=== PATIENT | male | born 1990 | race African-American/Black ===

== ENCOUNTER 2017-10-17 05:44 | Emergency (ER) | payer OTHER ==
[2017-10-17 06:17] LABS: #Basophils 0.1 thou/uL (0.0-0.2); #Lymphocytes 2.2 thou/uL (1.20-3.40); #Neutrophils 11.4 thou/uL (1.40-6.50); %Basophils 0.5 % (0.0-1.0); %Eosinophils 0.3 % (0.0-10.0); %Lymphocytes 15.1 % (21.0-51.0); %Monocytes 6.7 % (0.0-10.0); Hematocrit 48.9 % (42.0-52.0); Mean Platelet Volume 8.3 fL (7.4-10.4); Red Blood Cell (RBC) Count 4.84 mill/uL (4.70-6.10); White Blood Cell (WBC) Count 14.7 thou/uL (4.8-10.8)
[2017-10-17 06:33] LABS: ALT (SGPT) 33 U/L (8-55); AST (SGOT) 34 U/L (5-34); Alkaline Phosphatase 66 U/L (40-150); Anion Gap 21 mmol/L (10-20); BUN (Urea Nitrogen) 11 mg/dL (8.9-20.6); Bilirubin, Total 0.4 mg/dL (0.2-1.2); Calc. Creatinine Clearance 0 mL/min (70-130); Calcium 9.8 mg/dL (7.8-10.44); Carbon Dioxide 19 mmol/L (22-29); Chloride 106 mmol/L (98-107); Estimated GFR-MDRD Greater than 90; Globulin 3.2 g/dL (2.4-3.5); Lipase 11 U/L (8-78); Protein, Total 7.8 g/dL (6.0-8.3)
[2017-10-17] MEDS ORDERED: Ondansetron HCl/PF 4 MG/2 ML Vial ONE (06:35)
[2017-10-17] MEDS ORDERED: Famotidine/PF 20 mg/2ml Vial ONE (06:35)
[2017-10-17 06:44] LABS: Lactic Acid - Sepsis 3.5 mmol/L (0.5-2.2)
[2017-10-17] MEDS ORDERED: Ketorolac Tromethamine 30 MG/ML VIAL ONE (08:08)
--- NOTE | 2017-10-17 08:22 | RAD ---
PORTABLE CHEST: HISTORY: Abdominal pain. Vomiting and diarrhea. FINDINGS: Lungs are clear. Heart and mediastinum unremarkable. Scoliotic curvature of the thoracic spine is n oted with convexity to the right. IMPRESSION: No acute lung process. POS: [facility]
[2017-10-17 09:51] LABS: Bilirubin Negative (Negative); Blood, Urine Negative (Negative); Glucose, Urine (Dipstick) Negative (Negative); Ketone, Urine 80 mg/dL (Negative); Nitrite Negative (Negative); Protein, Urine (Dipstick) Trace mg/dL (Neg-Trace)
[2017-10-17] MEDS ORDERED: Morphine 4 MG/ML VIAL ONE (10:09)
--- NOTE | 2017-10-17 10:11 | CT ---
CT OF THE ABDOMEN AND PELVIS WITH IV CONTRAST: INDICATION: A 27-year-old male with severe abdominal pain, nausea, vomiting, and diarrhea since Wednesday. COMPARISON: Prior CT of the abdomen and pelvis with IV contrast dated 04/08/15. And a noncontrast CT of the abdomen and pelvis dated 12/23/16. FINDINGS: Lung bases are clear. The liver, spleen, pancreas, and adrenal glands appear within normal limits. There is a tiny cyst within the right mid kidney. No free fluid or enlarged lymph nodes are evident. The large and small bowel are normal caliber. The appendix is not difficult to visualize; however, t here are no secondary signs for appendicitis. Bladder appears within normal limits. 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 There is gas within the subcutane ous tissues overlying the left gluteal region. IMPRESSION: 1. No definite intraabdominal or intrapelvic acute abnormality. 2. Gas overlying the left gluteal region. Recommend correlation for recent injection within this location. POS: [facility]
[2017-10-17] MEDS ORDERED: Iopamidol 370 76% 50 ML VIAL FS ONE (17:45)
[2017-10-17] MEDS ORDERED: ISOVUE-370 76%-LOCM 1 ML ONE (17:45)
== END 2017-10-17 12:10 | disposition home or self-care (01) ==
LOC: ERS 05:44
DX: R11.2 Nausea with vomiting, unspecified (principal); R19.7 Diarrhea, unspecified; B20 Human immunodeficiency virus [HIV] disease; F17.210 Nicotine dependence, cigarettes, uncomplicated
CPT/HCPCS: 36415; 71010; 74177; 80053; 81003; 83605; 83690; 85025; 87040; 90471; 96361; 96365; 96372; 96375; J1885; J2270; J2405; S0028

== ENCOUNTER 2018-02-10 12:09 | Emergency (ER) | payer OTHER ==
[2018-02-10 13:03] LABS: #Lymphocytes 1.5 thou/uL (1.20-3.40); #Monocytes 0.8 thou/uL (0.11-0.59); #Neutrophils 9.1 thou/uL (1.40-6.50); %Basophils 0.3 % (0.0-1.0); %Eosinophils 0.4 % (0.0-10.0); %Monocytes 7.3 % (0.0-10.0); Hemoglobin 17.5 g/dL (14.0-18.0); Mean Corpuscular Hemoglobin 33.4 pg (27.0-31.0); Platelet Count 283 thou/uL (130-400); RBC Distribution Width 13.4 % (11.5-14.5); Red Blood Cell (RBC) Count 5.22 mill/uL (4.70-6.10); White Blood Cell (WBC) Count 11.5 thou/uL (4.8-10.8)
[2018-02-10 13:23] LABS: ALT (SGPT) 32 U/L (8-55); AST (SGOT) 33 U/L (5-34); Albumin 4.9 g/dL (3.5-5.0); Alkaline Phosphatase 73 U/L (40-150); Anion Gap 20 mmol/L (10-20); BUN (Urea Nitrogen) 9 mg/dL (8.9-20.6); Bilirubin, Total 0.6 mg/dL (0.2-1.2); Calc. Creatinine Clearance 0 mL/min (70-130); Calcium 10.4 mg/dL (7.8-10.44); Carbon Dioxide 18 mmol/L (22-29); Chloride 106 mmol/L (98-107); Estimated GFR-MDRD Greater than 90; Globulin 3.2 g/dL (2.4-3.5); Glucose 150 mg/dL (70-105); Lipase 6 U/L (8-78); Potassium 3.6 mmol/L (3.5-5.1); Protein, Total 8.1 g/dL (6.0-8.3); Sodium 140 mmol/L (136-145)
[2018-02-10] MEDS ORDERED: Haloperidol Lactate 5 MG/ML VIAL ONE ×2 (13:56→15:00)
[2018-02-10] MEDS ORDERED: Promethazine HCl 25 MG/ML VIAL ONE (15:00)
[2018-02-10] MEDS ORDERED: Pantoprazole 40 MG VIAL ONE (15:14)
--- NOTE | 2018-02-10 16:02 | RAD ---
ABDOMEN 2 VIEWS CHEST 1 VIEW: HISTORY: Nausea. Vomiting. Pain. COMPARISON: None. FINDINGS: ONE VIEW CHEST: Normal cardiac silhouette. The lungs and pleural spaces are clear. No pneumothorax. There is right power curvature of the thoracic spine. ABDOMEN 2 VIEWS: No evidence of pneumoperitoneum on the right lateral decubitus film. The bowel gas pattern is nonspe cific. Air ingestion does accentuate the gastric rugae. No suspicious densities in the abdomen or p toya. Presumed chronic changes involving the bony pelvis and proximal left femur. Absence of the r ight femur is noted. IMPRESSION: 1. No acute cardiopulmonary process. 2. Nonspecific bowel gas pattern. 3. Chronic osseous change. POS: [facility]
== END 2018-02-10 17:25 | disposition home or self-care (01) ==
LOC: ERS 12:09
DX: R11.2 Nausea with vomiting, unspecified (principal); R19.7 Diarrhea, unspecified; B20 Human immunodeficiency virus [HIV] disease
CPT/HCPCS: 36415; 74022; 80053; 83690; 85025; 96365; 96367; 96368; 96375; C9113; J1630; J2550

== ENCOUNTER 2018-07-06 07:20 | Emergency (ER) | payer OTHER ==
[2018-07-06] MEDS ORDERED: Promethazine HCl 25 MG/ML VIAL ONE (07:39)
[2018-07-06] MEDS ORDERED: Morphine 4 MG/ML VIAL ONE (08:39)
[2018-07-06 08:56] LABS: Hemoglobin 16.4 g/dL (14.0-18.0); Mean Corpuscular HGB CONC 35.4 g/dL (32.0-36.0); Mean Corpuscular Hemoglobin 35.4 pg (27.0-31.0); Mean Platelet Volume 7.9 fL (7.4-10.4); Platelet Count 227 thou/uL (130-400); RBC Distribution Width 12.2 % (11.5-14.5); Red Blood Cell (RBC) Count 4.62 mill/uL (4.70-6.10); White Blood Cell (WBC) Count 10.2 thou/uL (4.8-10.8)
[2018-07-06 09:18] LABS: ALT (SGPT) 42 U/L (8-55); AST (SGOT) 36 U/L (5-34); Albumin 4.5 g/dL (3.5-5.0); Alkaline Phosphatase 65 U/L (40-150); Anion Gap 16 mmol/L (10-20); BUN (Urea Nitrogen) 9 mg/dL (8.9-20.6); Bilirubin, Total 0.5 mg/dL (0.2-1.2); Calc. Creatinine Clearance 0 mL/min (70-130); Calcium 9.4 mg/dL (7.8-10.44); Carbon Dioxide 20 mmol/L (22-29); Chloride 108 mmol/L (98-107); Estimated GFR-MDRD Greater than 90; Globulin 2.8 g/dL (2.4-3.5); Glucose 126 mg/dL (70-105); Lipase 14 U/L (8-78); Potassium 3.5 mmol/L (3.5-5.1); Protein, Total 7.3 g/dL (6.0-8.3); Sodium 140 mmol/L (136-145)
[2018-07-06 09:33] LABS: Band 1 % (5-11); Lymphocytes 15 % (21-51); MDiff Complete? YES; Neutrophil 84 % (42-75); RBC Morphology Normal
== END 2018-07-06 10:54 | disposition home or self-care (01) ==
LOC: ERS 07:20
DX: R11.2 Nausea with vomiting, unspecified (principal); B20 Human immunodeficiency virus [HIV] disease
CPT/HCPCS: 36415; 80053; 83690; 85025; 96361; 96374; 96375; J2270; J2550

== ENCOUNTER 2019-02-26 15:57 | Emergency (ER) | payer OTHER ==
[~2019-02-26 15:57] MED LIST: ISOVUE-370 76%-LOCM 1 ML ONE
[2019-02-26] MEDS ORDERED: Morphine 4 MG/ML VIAL ONE (16:15)
[2019-02-26] MEDS ORDERED: Ketorolac Tromethamine 30 MG/ML VIAL ONE (16:16)
[2019-02-26 16:31] LABS: #Eosinphils 0.1 thou/uL (0.0-0.7); #Lymphocytes 1.4 thou/uL (1.20-3.40); #Monocytes 0.9 thou/uL (0.11-0.59); #Neutrophils 11.5 thou/uL (1.40-6.50); %Basophils 0.1 % (0.0-1.0); %Eosinophils 0.5 % (0.0-10.0); %Lymphocytes 9.9 % (21.0-51.0); %Monocytes 6.7 % (0.0-10.0); %Neutrophils 82.8 % (42.0-75.0); Hemoglobin 16.6 g/dL (14.0-18.0); Mean Corpuscular HGB CONC 32.2 g/dL (32.0-36.0); Mean Corpuscular Hemoglobin 32.3 pg (27.0-31.0); Mean Platelet Volume 7.6 fL (7.4-10.4); Platelet Count 293 thou/uL (130-400); RBC Distribution Width 12.6 % (11.5-14.5); Red Blood Cell (RBC) Count 5.13 mill/uL (4.70-6.10); White Blood Cell (WBC) Count 13.9 thou/uL (4.8-10.8)
--- NOTE | 2019-02-26 16:31 | RAD ---
XR Chest 1 View Portable HISTORY: Chest pain COMPARISON: 10/17/2017 FINDINGS: The heart size is normal. The lungs are well expanded without focal areas of consolidation, pneumothorax or pleural effusions. Scoliosis of the spine is again seen IMPRESSION: No radiographic evidence of acute cardiopulmonary process.
[2019-02-26] MEDS ORDERED: Haloperidol Lactate 5 MG/ML VIAL ONE (16:46)
[2019-02-26 16:48] LABS: Acetaminophen Less than 6.0 mcg/mL (10.0-30.0); Alcohol Less than 10 mg/dL (Less than 10); Salicylate Less than 8.0 mg/dL (15.0-30.0)
[2019-02-26 16:50] LABS: ALT (SGPT) 21 U/L (8-55); AST (SGOT) 24 U/L (5-34); Alkaline Phosphatase 75 U/L (40-150); Anion Gap 19 mmol/L (10-20); BUN (Urea Nitrogen) 11 mg/dL (8.9-20.6); Calc. Creatinine Clearance 0 mL/min (70-130); Calcium 10.5 mg/dL (7.8-10.44); Carbon Dioxide 21 mmol/L (22-29); Chloride 103 mmol/L (98-107); Estimated GFR-MDRD Greater than 90; Globulin 2.7 g/dL (2.4-3.5); Glucose 105 mg/dL (70-105); Lipase 17 U/L (8-78); Potassium 3.7 mmol/L (3.5-5.1); Protein, Total 7.7 g/dL (6.0-8.3); Sodium 139 mmol/L (136-145)
[2019-02-26] MEDS ORDERED: diphenhydrAMINE 50 MG/ML VIAL ONE (16:50)
--- NOTE | 2019-02-26 18:30 | CT ---
CT ABDOMEN AND PELVIS WITH IV CONTRAST: History: Abdominal pain. Patient is HIV positive. Vomiting and diarrhea. Comparison: 10-17-17 FINDINGS: The lung bases are clear. The liver, spleen, pancreas, adrenal glands are normal. Low density lesions in the kidneys consistent with cysts are again seen. No calcified gallstones are identified. No free air, free fluid, or lymphadenopathy is seen in the abdomen or pelvis. The small bowel loops are not abnormally dilated. The appendix is normal. Chronic deformity of the spine, pelvis, and left lower ex tremity are again seen. The right femur is absent. IMPRESSION: No definite evidence of acute process. POS: [facility]
[2019-02-26 19:53] LABS: Amphetamine Detected (NotDetected); Barbiturates Screen Not Detected (NotDetected); Benzodiazepine Screen Not Detected (NotDetected); Cocaine Metabolite Screen Not Detected (NotDetected); Medtox Control Line Valid? VALID (VALID); Medtox Reader # READER 4; Methadone Not Detected (NotDetected); Methamphetamine Detected (NotDetected); Opiate Screen Detected (NotDetected); Oxycodone Screen Not Detected (NotDetected); Phencyclidine (PCP) Not Detected (NotDetected); THC/Cannabinoid Screen Detected (NotDetected); Tricyclic Screen Not Detected (NotDetected)
[2019-02-26 19:56] LABS: Clarity CLEAR (Clear)
[2019-02-26 19:57] LABS: Bilirubin Negative (Negative); Blood, Urine Negative (Negative); Glucose, Urine (Dipstick) Negative (Negative); Leukocyte Negative (Negative); Nitrite Negative (Negative); Protein, Urine (Dipstick) 30 mg/dL (Neg-Trace); Urobilinogen 0.2 mg/dL (0.2-1.0)
== END 2019-02-26 19:50 | disposition home or self-care (01) ==
LOC: ERS 15:57
DX: R10.13 Epigastric pain (principal); B20 Human immunodeficiency virus [HIV] disease; F17.210 Nicotine dependence, cigarettes, uncomplicated
CPT/HCPCS: 36415; 71045; 74177; 80053; 80306; 80307; 81003; 81015; 83690; 85025; 96361; 96374; 96375; J1200; J1630; J1885; J2270; Q9966

== ENCOUNTER 2019-08-19 06:17 | Emergency (ER) | payer OTHER ==
[2019-08-19] MEDS ORDERED: Metoclopramide HCl 10 MG/2 ML VIAL ONE (06:27)
[2019-08-19] MEDS ORDERED: Ketorolac Tromethamine 30 MG/ML VIAL ONE (06:42)
[2019-08-19 06:58] LABS: #Basophils 0.1 thou/uL (0.0-0.2); #Eosinphils 0.1 thou/uL (0.0-0.7); #Lymphocytes 2.2 thou/uL (1.20-3.40); #Neutrophils 7.7 thou/uL (1.40-6.50); %Eosinophils 0.7 % (0.0-10.0); %Lymphocytes 19.8 % (21.0-51.0); %Monocytes 8.8 % (0.0-10.0); %Neutrophils 69.7 % (42.0-75.0); Hemoglobin 15.6 g/dL (14.0-18.0); Mean Corpuscular HGB CONC 34.6 g/dL (32.0-36.0); Mean Corpuscular Hemoglobin 34.9 pg (27.0-31.0); Mean Platelet Volume 7.7 fL (7.4-10.4); Platelet Count 220 thou/uL (130-400); RBC Distribution Width 12.6 % (11.5-14.5); Red Blood Cell (RBC) Count 4.45 mill/uL (4.70-6.10)
[2019-08-19 07:20] LABS: ALT (SGPT) 17 U/L (8-55); AST (SGOT) 21 U/L (5-34); Albumin 4.1 g/dL (3.5-5.0); Alkaline Phosphatase 64 U/L (40-110); Anion Gap 14 mmol/L (10-20); BUN (Urea Nitrogen) 9 mg/dL (8.9-20.6); Bilirubin, Total 0.2 mg/dL (0.2-1.2); Calc. Creatinine Clearance 0 mL/min (70-130); Calcium 8.7 mg/dL (7.8-10.44); Carbon Dioxide 21 mmol/L (22-29); Chloride 109 mmol/L (98-107); Estimated GFR-MDRD Greater than 90; Globulin 2.2 g/dL (2.4-3.5); Glucose 129 mg/dL (70-105); Potassium 3.6 mmol/L (3.5-5.1); Protein, Total 6.3 g/dL (6.0-8.3); Sodium 140 mmol/L (136-145)
[2019-08-19] MEDS ORDERED: Haloperidol Lactate 5 MG/ML VIAL ONE (08:20)
== END 2019-08-19 08:39 | disposition left against medical advice (07) ==
LOC: ERS 06:17
DX: R10.84 Generalized abdominal pain (principal); R11.2 Nausea with vomiting, unspecified; B20 Human immunodeficiency virus [HIV] disease; F17.210 Nicotine dependence, cigarettes, uncomplicated
CPT/HCPCS: 36415; 80053; 83690; 85025; J1630; J1885; J2765

== ENCOUNTER 2019-08-19 15:47 | Emergency (ER) | payer OTHER ==
[2019-08-19 16:12] LABS: #Lymphocytes 1.6 thou/uL (1.20-3.40); #Monocytes 0.8 thou/uL (0.11-0.59); #Neutrophils 8.8 thou/uL (1.40-6.50); %Basophils 0.3 % (0.0-1.0); %Eosinophils 0.4 % (0.0-10.0); %Lymphocytes 13.9 % (21.0-51.0); %Monocytes 6.8 % (0.0-10.0); %Neutrophils 78.6 % (42.0-75.0); Hemoglobin 15.7 g/dL (14.0-18.0); Mean Corpuscular HGB CONC 34.4 g/dL (32.0-36.0); Mean Corpuscular Hemoglobin 34.8 pg (27.0-31.0); Mean Platelet Volume 7.7 fL (7.4-10.4); Platelet Count 222 thou/uL (130-400); RBC Distribution Width 12.7 % (11.5-14.5); Red Blood Cell (RBC) Count 4.52 mill/uL (4.70-6.10); White Blood Cell (WBC) Count 11.1 thou/uL (4.8-10.8)
[2019-08-19] MEDS ORDERED: Ketorolac Tromethamine 30 MG/ML VIAL ONE (16:46)
[2019-08-19] MEDS ORDERED: Ondansetron PF 4 MG/2 ML Vial ONE ×2 (16:46→18:24)
[2019-08-19 16:52] LABS: ALT (SGPT) 17 U/L (8-55); AST (SGOT) 21 U/L (5-34); Albumin 4.5 g/dL (3.5-5.0); Alkaline Phosphatase 70 U/L (40-110); Anion Gap 17 mmol/L (10-20); BUN (Urea Nitrogen) 7 mg/dL (8.9-20.6); Bilirubin, Total 0.4 mg/dL (0.2-1.2); Calc. Creatinine Clearance 0 mL/min (70-130); Calcium 10.3 mg/dL (7.8-10.44); Carbon Dioxide 22 mmol/L (22-29); Chloride 103 mmol/L (98-107); Estimated GFR-MDRD Greater than 90; Globulin 2.6 g/dL (2.4-3.5); Glucose 106 mg/dL (70-105); Lipase 8 U/L (8-78); Potassium 3.4 mmol/L (3.5-5.1); Protein, Total 7.1 g/dL (6.0-8.3); Sodium 139 mmol/L (136-145)
--- NOTE | 2019-08-19 17:55 | CT ---
CT ABDOMEN WITH CONTRAST CT PELVIS WITH CONTRAST: DATE: 08/19/2019 HISTORY: 28-year-old male with generalized abdominal pain, nausea, and vomiting. COMPARISON: 02/26/2019. TECHNIQUE: IV injection of iodinated contrast media: Administered Oral contrast media:Not administered FINDINGS: Because of lack of visceral fat, evaluation of pancreas, bowel, and appendix, is limited, especially without oral contrast. Liver: No focal solid mass. Spleen: No splenomegaly.. Pancreas: No mass or surrounding fat stranding.. Adrenals: No mass.. Kidneys: No hydronephrosis or enhancement abnormalities.. Ureters: No dilation. Bladder: No pathology identified. Abdominal aorta: No aneurysm. Small bowel: No dilation. Colon: No adjacent fat stranding. Appendix: Not identified. Free air: None. Free fluid: None. No significant interval change identified, except for nonidentification of the appendix on the curren t CT. Levoscoliosis. 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 IMPRESSION: No definite acute pathology identified..
[2019-08-19] MEDS ORDERED: Morphine 4 MG/ML VIAL ONE (18:21)
[2019-08-19] MEDS ORDERED: Haloperidol Lactate 5 MG/ML VIAL ONE (18:21)
[2019-08-19 18:52] LABS: Bilirubin Negative (Negative); Blood, Urine Negative (Negative); Clarity Clear (Clear); Glucose, Urine (Dipstick) Normal (Negative); Leukocyte Negative Leu/uL (Negative); Nitrite Negative (Negative); Protein, Urine (Dipstick) 20 mg/dL (Neg-Trace); Urobilinogen Normal mg/dL (Less than 2)
== END 2019-08-19 19:54 | disposition home or self-care (01) ==
LOC: ERS 15:47
DX: F12.188 Cannabis abuse with other cannabis-induced disorder (principal); B20 Human immunodeficiency virus [HIV] disease; F17.210 Nicotine dependence, cigarettes, uncomplicated
CPT/HCPCS: 36415; 74177; 80053; 81003; 83690; 85025; 96361; 96365; 96374; 96375; 96376; J1630; J1885; J2270; J2405; J2765

== ENCOUNTER 2021-04-08 07:41 | Emergency (ER) | payer OTHER ==
[2021-04-08] MEDS ORDERED: Ondansetron PF 4 MG/2 ML Vial ONE (07:52)
[2021-04-08] MEDS ORDERED: Haloperidol Lactate 5 MG/ML VIAL ONE (07:58)
[2021-04-08 08:11] LABS: #Basophils 0.1 thou/uL (0.0-0.2); #Eosinphils 0.1 thou/uL (0.0-0.7); #Lymphocytes 4.6 thou/uL (1.20-3.40); #Neutrophils 8.7 thou/uL (1.40-6.50); %Basophils 0.8 % (0.0-1.0); %Eosinophils 0.7 % (0.0-10.0); %Lymphocytes 31.9 % (21.0-51.0); %Monocytes 6.6 % (0.0-10.0); %Neutrophils 60.1 % (42.0-75.0); Hemoglobin 16.3 g/dL (14.0-18.0); Mean Corpuscular HGB CONC 32.8 g/dL (32.0-36.0); Mean Corpuscular Hemoglobin 33.1 pg (27.0-31.0); Mean Platelet Volume 7.5 fL (7.4-10.4); Platelet Count 289 thou/uL (130-400); RBC Distribution Width 13.5 % (11.5-14.5); Red Blood Cell (RBC) Count 4.92 mill/uL (4.70-6.10); White Blood Cell (WBC) Count 14.4 thou/uL (4.8-10.8)
[2021-04-08 08:29] LABS: ALT (SGPT) 32 U/L (8-55); AST (SGOT) 29 U/L (5-34); Albumin 4.6 g/dL (3.5-5.0); Alkaline Phosphatase 71 U/L (40-110); Anion Gap 16 mmol/L (10-20); BUN (Urea Nitrogen) 11 mg/dL (8.9-20.6); Bilirubin, Total 0.4 mg/dL (0.2-1.2); Calc. Creatinine Clearance 0 mL/min (70-130); Carbon Dioxide 23 mmol/L (22-29); Chloride 103 mmol/L (98-107); Globulin 2.8 g/dL (2.4-3.5); Glucose 164 mg/dL (70-105); Lipase 19 U/L (8-78); Potassium 3.2 mmol/L (3.5-5.1); Protein, Total 7.4 g/dL (6.0-8.3); Sodium 139 mmol/L (136-145)
[2021-04-08] MEDS ORDERED: Potassium Chloride 20 MEQ TAB ONE (09:29)
[2021-04-08] MEDS ORDERED: diphenhydrAMINE 50 MG/ML VIAL ONE (09:42)
== END 2021-04-08 10:45 | disposition home or self-care (01) ==
LOC: ERS 07:41
DX: R10.12 Left upper quadrant pain (principal); R11.2 Nausea with vomiting, unspecified; E87.6 Hypokalemia; B20 Human immunodeficiency virus [HIV] disease; F17.210 Nicotine dependence, cigarettes, uncomplicated
CPT/HCPCS: 36415; 80053; 83690; 83735; 85025; 94760; 96361; 96374; 96375; J1200; J1630; J2405

== ENCOUNTER 2021-08-16 08:37 | Emergency (ER) | payer OTHER ==
[2021-08-16] MEDS ORDERED: Haloperidol Lactate 5 MG/ML VIAL ONE (09:00)
[2021-08-16 09:28] LABS: Hemoglobin 16.7 g/dL (14.0-18.0); Mean Corpuscular HGB CONC 34.1 g/dL (32.0-36.0); Mean Corpuscular Hemoglobin 34.1 pg (27.0-31.0); Mean Platelet Volume 7.6 fL (7.4-10.4); Platelet Count 369 thou/uL (130-400); RBC Distribution Width 12.8 % (11.5-14.5)
[2021-08-16 09:43] LABS: ALT (SGPT) 48 U/L (8-55); AST (SGOT) 35 U/L (5-34); Albumin 4.5 g/dL (3.5-5.0); Alkaline Phosphatase 81 U/L (40-110); Anion Gap 23 mmol/L (10-20); BUN (Urea Nitrogen) 12 mg/dL (8.9-20.6); Bilirubin, Total 0.6 mg/dL (0.2-1.2); Calc. Creatinine Clearance 0 mL/min (70-130); Carbon Dioxide 16 mmol/L (22-29); Chloride 105 mmol/L (98-107); Globulin 3.5 g/dL (2.4-3.5); Glucose 123 mg/dL (70-105); Lipase 9 U/L (8-78); Potassium 4.3 mmol/L (3.5-5.1); Sodium 140 mmol/L (136-145)
[2021-08-16 09:52] LABS: Lymphocytes 14 % (21-51); MDiff Complete? YES; Monocytes 6 % (0-10); Neutrophil 80 % (42-75); Platelet Morphology Comment Appears Adequate; Vacuoles SLIGHT; White Blood Cell (WBC) Count 20.9 thou/uL (4.8-10.8)
[2021-08-16] MEDS ORDERED: Iopamidol-370 76% 500 ML 1 ML ONE (10:14)
[2021-08-16 12:08] LABS: Bilirubin Negative (Negative); Blood, Urine Negative (Negative); Clarity Clear (Clear); Glucose, Urine (Dipstick) Normal (Negative); Ketone, Urine 80 mg/dL (Negative); Leukocyte Negative Leu/uL (Negative); Nitrite Negative (Negative); Protein, Urine (Dipstick) 10 mg/dL (Neg-Trace); Urobilinogen Normal mg/dL (Less than 2)
[2021-08-16 12:09] LABS: Specific Gravity, Urine 1.047 (1.002-1.036)
== END 2021-08-16 12:47 | disposition home or self-care (01) ==
LOC: ERS 08:37
DX: R10.84 Generalized abdominal pain (principal); R11.2 Nausea with vomiting, unspecified; F17.210 Nicotine dependence, cigarettes, uncomplicated; Z21 Asymptomatic human immunodeficiency virus [HIV] infection status
CPT/HCPCS: 74177; 80053; 81003; 83690; 85025; 94760; 96374; J1630; Q9967

== ENCOUNTER 2021-10-01 09:54 | Emergency (ER) | payer OTHER ==
[2021-10-01] MEDS ORDERED: HYDROcodone/Acetaminophen 5/325 mg Tablet ONE (11:28)
[2021-10-01] MEDS ORDERED: Ketorolac Tromethamine 30 MG/ML VIAL ONE (11:28)
== END 2021-10-01 12:07 | disposition home or self-care (01) ==
LOC: ERS 09:54
DX: S46.002A Unspecified injury of muscle(s) and tendon(s) of the rotator cuff of left shoulder, initial encounter (principal); V89.2XXA Person injured in unspecified motor-vehicle accident, traffic, initial encounter; Z21 Asymptomatic human immunodeficiency virus [HIV] infection status
CPT/HCPCS: 96372; J1885

== ENCOUNTER 2021-10-09 11:12 | Emergency (ER) | payer OTHER ==
[2021-10-09] MEDS ORDERED: Haloperidol Lactate 5 MG/ML VIAL ONE (12:10)
[2021-10-09 13:03] LABS: Hemoglobin 15.9 g/dL (14.0-18.0); Mean Corpuscular HGB CONC 34.2 g/dL (32.0-36.0); Mean Corpuscular Hemoglobin 34.9 pg (27.0-31.0); Mean Platelet Volume 7.4 fL (7.4-10.4); Platelet Count 329 thou/uL (130-400); RBC Distribution Width 12.6 % (11.5-14.5); Red Blood Cell (RBC) Count 4.55 mill/uL (4.70-6.10)
[2021-10-09 13:07] LABS: White Blood Cell (WBC) Count 13.1 thou/uL (4.8-10.8)
[2021-10-09 13:20] LABS: ALT (SGPT) 35 U/L (8-55); AST (SGOT) 29 U/L (5-34); Albumin 4.7 g/dL (3.5-5.0); Alkaline Phosphatase 74 U/L (40-110); Anion Gap 20 mmol/L (10-20); BUN (Urea Nitrogen) 10 mg/dL (8.9-20.6); Bilirubin, Total 0.7 mg/dL (0.2-1.2); Calc. Creatinine Clearance 0 mL/min (70-130); Calcium 10.4 mg/dL (7.8-10.44); Carbon Dioxide 15 mmol/L (22-29); Chloride 109 mmol/L (98-107); Globulin 3.1 g/dL (2.4-3.5); Glucose 128 mg/dL (70-105); Lipase 15 U/L (8-78); Potassium 3.9 mmol/L (3.5-5.1); Protein, Total 7.8 g/dL (6.0-8.3); Sodium 140 mmol/L (136-145)
[2021-10-09 13:23] LABS: #Eosinphils 0.1 thou/uL (0.0-0.7); #Lymphocytes 1.8 thou/uL (1.20-3.40); #Monocytes 1.1 thou/uL (0.11-0.59); #Neutrophils 10.1 thou/uL (1.40-6.50); %Basophils 0.1 % (0.0-1.0); %Eosinophils 0.4 % (0.0-10.0); %Monocytes 8.5 % (0.0-10.0); MDiff Complete? YES; Macrocytosis SLIGHT = 6-15 cells (100X) (0-5/hpf); Platelet Morphology Comment Appears Adequate
[2021-10-09] MEDS ORDERED: Ketorolac Tromethamine 30 MG/ML VIAL ONE (13:44)
== END 2021-10-09 15:38 | disposition home or self-care (01) ==
LOC: ERS 11:12
DX: F12.188 Cannabis abuse with other cannabis-induced disorder (principal); R11.10 Vomiting, unspecified; E86.0 Dehydration; Z79.899 Other long term (current) drug therapy
CPT/HCPCS: 36415; 80053; 83690; 85025; 96374; J1630; J1885

== ENCOUNTER 2022-02-04 08:46 | Emergency (ER) | payer OTHER ==
[2022-02-04] MEDS ORDERED: Haloperidol Lactate 5 MG/ML VIAL ONE (09:11)
[2022-02-04 09:23] LABS: #Basophils 0.1 thou/uL (0.0-0.2); #Eosinphils 0.1 thou/uL (0.0-0.7); #Monocytes 0.6 thou/uL (0.11-0.59); #Neutrophils 7.9 thou/uL (1.40-6.50); %Basophils 0.7 % (0.0-1.0); %Eosinophils 0.7 % (0.0-10.0); %Lymphocytes 18.4 % (21.0-51.0); %Monocytes 5.5 % (0.0-10.0); %Neutrophils 74.8 % (42.0-75.0); Hemoglobin 16.4 g/dL (14.0-18.0); Mean Platelet Volume 7.3 fL (7.4-10.4); Platelet Count 268 thou/uL (130-400); RBC Distribution Width 12.6 % (11.5-14.5); Red Blood Cell (RBC) Count 4.67 mill/uL (4.70-6.10); White Blood Cell (WBC) Count 10.6 thou/uL (4.8-10.8)
[2022-02-04] MEDS ORDERED: Lorazepam 2 MG/ML VIAL ONE (09:23)
[2022-02-04 09:47] LABS: ALT (SGPT) 24 U/L (8-55); AST (SGOT) 23 U/L (5-34); Albumin 4.6 g/dL (3.5-5.0); Alkaline Phosphatase 74 U/L (40-110); Anion Gap 20 mmol/L (10-20); BUN (Urea Nitrogen) 9 mg/dL (8.9-20.6); Bilirubin, Total 0.6 mg/dL (0.2-1.2); Calc. Creatinine Clearance 0 mL/min (70-130); Calcium 9.5 mg/dL (7.8-10.44); Carbon Dioxide 16 mmol/L (22-29); Chloride 108 mmol/L (98-107); Globulin 2.4 g/dL (2.4-3.5); Glucose 138 mg/dL (70-105); Lipase 17 U/L (8-78); Potassium 3.7 mmol/L (3.5-5.1); Sodium 140 mmol/L (136-145)
[2022-02-04] MEDS ORDERED: Midazolam HCl 2 mg/2 ml Vial SLOW IVP SCH (17:15)
== END 2022-02-04 12:00 | disposition home or self-care (01) ==
LOC: ERS 08:46
DX: R10.13 Epigastric pain (principal); R11.2 Nausea with vomiting, unspecified; B20 Human immunodeficiency virus [HIV] disease
CPT/HCPCS: 36415; 80053; 83690; 84484; 85025; 93005; 96374; 96375; J1630; J2060

== ENCOUNTER 2023-07-02 07:29 | Emergency (ER) | payer OTHER ==
[2023-07-02] MEDS ORDERED: Morphine 4 MG/ML VIAL ONE (07:48)
[2023-07-02] MEDS ORDERED: Ondansetron PF 4 MG/2 ML Vial ONE (07:48)
[2023-07-02] MEDS ORDERED: Haloperidol Lactate 5 MG/ML VIAL ONE (07:58)
[2023-07-02] MEDS ORDERED: diphenhydrAMINE 50 MG/ML VIAL ONE (07:58)
[2023-07-02 08:14] LABS: #Monocytes 0.8 thou/uL (0.11-0.59); #Neutrophils 7.1 thou/uL (1.40-6.50); %Basophils 0.3 % (0.0-1.0); %Lymphocytes 26.1 % (21.0-51.0); %Monocytes 6.9 % (0.0-10.0); %Neutrophils 65.1 % (42.0-75.0); Hematocrit 44.8 % (42.0-52.0); Hemoglobin 15.9 g/dL (14.0-18.0); Mean Corpuscular HGB CONC 35.5 g/dL (32.0-36.0); Mean Corpuscular Hemoglobin 31.9 pg (27.0-31.0); Mean Corpuscular Volume 89.8 fl (78.0-98.0); Mean Platelet Volume 9.9 fL (7.4-10.4); Platelet Count 294 10x3/uL (130-400); RBC Distribution Width 13.4 % (11.5-14.5); Red Blood Cell (RBC) Count 4.99 mill/uL (4.70-6.10); White Blood Cell (WBC) Count 10.8 10x3/uL (4.8-10.8)
[2023-07-02 08:35] LABS: ALT (SGPT) 20 U/L (8-55); AST (SGOT) 19 U/L (5-34); Albumin 4.7 g/dL (3.5-5.0); Alkaline Phosphatase 68 U/L (40-110); Anion Gap 22 mmol/L (10-20); BUN (Urea Nitrogen) 11 mg/dL (8.9-20.6); Bilirubin, Total 0.3 mg/dL (0.2-1.2); CK (CPK) 234 U/L (30-200); Calc. Creatinine Clearance 0 mL/min (70-130); Calcium 10.3 mg/dL (7.8-10.44); Carbon Dioxide 15 mmol/L (22-29); Chloride 107 mmol/L (98-107); Estimated GFR 117; Globulin 3.1 g/dL (2.4-3.5); Glucose 151 mg/dL (70-105); Lipase 22 U/L (8-78); Potassium 3.8 mmol/L (3.5-5.1); Protein, Total 7.8 g/dL (6.0-8.3); Sodium 140 mmol/L (136-145)
== END 2023-07-02 09:54 | disposition home or self-care (01) ==
LOC: ERS 07:29
DX: R10.9 Unspecified abdominal pain (principal); G89.29 Other chronic pain; B20 Human immunodeficiency virus [HIV] disease
CPT/HCPCS: 80053; 82550; 83690; 85025; 96361; 96374; 96375; J1200; J1630; J2270; J2405

== ENCOUNTER 2023-09-24 02:15 | Emergency (ER) | payer OTHER ==
[2023-09-24] MEDS ORDERED: Haloperidol Lactate 5 MG/ML VIAL ONE (02:34)
[2023-09-24 02:39] LABS: Hematocrit 45.4 % (42.0-52.0); Hemoglobin 15.9 g/dL (14.0-18.0); Mean Corpuscular Hemoglobin 32.8 pg (27.0-31.0); Mean Corpuscular Volume 93.6 fl (78.0-98.0); Mean Platelet Volume 9.9 fL (7.4-10.4); Platelet Count 288 10x3/uL (130-400); RBC Distribution Width 14.7 % (11.5-14.5); Red Blood Cell (RBC) Count 4.85 mill/uL (4.70-6.10); White Blood Cell (WBC) Count 13.6 10x3/uL (4.8-10.8)
[2023-09-24 02:40] LABS: Delete Auto Diff?? YES; Manual Diff?? YES
[2023-09-24 03:00] LABS: ALT (SGPT) 15 U/L (8-55); AST (SGOT) 17 U/L (5-34); Albumin 4.5 g/dL (3.5-5.0); Alkaline Phosphatase 73 U/L (40-110); Anion Gap 22 mmol/L (10-20); BUN (Urea Nitrogen) 8 mg/dL (8.9-20.6); Bilirubin, Total 0.5 mg/dL (0.2-1.2); Calc. Creatinine Clearance 0 mL/min (70-130); Calcium 9.7 mg/dL (7.8-10.44); Carbon Dioxide 16 mmol/L (22-29); Chloride 108 mmol/L (98-107); Estimated GFR 118; Globulin 3.3 g/dL (2.4-3.5); Glucose 124 mg/dL (70-105); Lipase 54 U/L (8-78); Potassium 3.6 mmol/L (3.5-5.1); Protein, Total 7.8 g/dL (6.0-8.3); Sodium 142 mmol/L (136-145)
[2023-09-24 03:02] LABS: Anisocytosis SLIGHT = 6-15 cells HPF (0-5); Band 1 % (5-11); CellaVision Operator ID lab.sh2; Lymphocytes 16 % (21-51); Monocytes 17 % (0-10); Neutrophil 58 % (42-75); Platelet Adequacy Comment Platelets Normal; Polychromasia SLIGHT = 2-3 cells HPF (0-2); Reactive Lymphocytes 9 % (0-10); Smudge Cells 6.9 %; Total Cell Count 102
[2023-09-24 05:50] LABS: Lactic Acid 1.3 mmol/L (0.5-2.2)
[2023-09-24] MEDS ORDERED: Iopamidol-370 76% 500 ML MDV (1 ML CHARGE) ONE (11:11)
== END 2023-09-24 06:46 | disposition home or self-care (01) ==
LOC: ERS 02:15
DX: E86.0 Dehydration (principal); R10.84 Generalized abdominal pain; R11.2 Nausea with vomiting, unspecified
CPT/HCPCS: 36415; 74177; 80053; 83605; 83690; 85025; 87040; 93005; 96374; J1630; Q9967

== ENCOUNTER 2024-01-30 10:23 | Emergency (ER) | payer SELFPAY ==
[2024-01-30] MEDS ORDERED: Morphine 4 MG/ML VIAL ONE ×2 (10:34→12:23)
[2024-01-30] MEDS ORDERED: Ondansetron PF 4 MG/2 ML Vial ONE ×2 (10:34→11:55)
[2024-01-30 10:58] LABS: Actual Bicarbonate (HCO3v) 19.1 mEq/L (22-28); Base Excess 1.3 mEq/L (-2.0 to +3.0); Calcium, Ionized (venous) 0.96 mmol/L (1.16-1.32); Chloride (VBG) 105 mmol/L (98-106); Hematocrit-VBG 51 % (42.0-52.0); Hemoglobin (Hb) 17.3 g/dL (13.2-17.3); Potassium (VBG) 3.93 mmol/L (3.70-5.30); Sodium 137 mmol/L (133-146); pH (venous) 7.631 (7.32-7.43)
[2024-01-30] MEDS ORDERED: Piperacillin/Tazobactam 4.5 GM VIAL ONE (10:58)
[2024-01-30] MEDS ORDERED: Sodium Chloride 0.9% 100 ML ONE (10:59)
[2024-01-30 11:12] LABS: #Basophils 0.04 10x3/uL (0.0-0.2); #Eosinphils Less than 0.03 10x3/uL (0.0-0.7); %Basophils 0.3 % (0.0-1.0); %Eosinophils 0.2 % (0.0-10.0); %Lymphocytes 37.3 % (21.0-51.0); %Monocytes 14.3 % (0.0-10.0); %Neutrophils 45.3 % (42.0-75.0); Hematocrit 45.9 % (42.0-52.0); Hemoglobin 16.6 g/dL (14.0-18.0); Mean Corpuscular HGB CONC 36.2 g/dL (32.0-36.0); Mean Corpuscular Hemoglobin 32.9 pg (27.0-31.0); Mean Corpuscular Volume 91.1 fL (78.0-98.0); Mean Platelet Volume 9.7 fL (7.4-10.4); Platelet Count 297 10x3/uL (130-400); RBC Distribution Width 13.4 % (11.5-14.5); Red Blood Cell (RBC) Count 5.04 mill/uL (4.70-6.10)
[2024-01-30] MEDS ORDERED: Iopamidol-370 76% 500 ML MDV (1 ML CHARGE) ONE (11:30)
[2024-01-30 11:33] LABS: Troponin I Less than 0.010 ng/mL (< 0.028)
[2024-01-30 11:36] LABS: INR-International Normal Ratio 0.9; Prothrombin Time 12.2 sec (12.0-14.7)
[2024-01-30 11:37] LABS: PTT 28.7 sec (22.9-36.1)
[2024-01-30] MEDS ORDERED: Vancomycin 1 GM in Premix 1 BAG IVPB SCH (11:45)
[2024-01-30] MEDS ORDERED: Vancomycin 1 GM/200 ML (FROZEN) BAG ONE (11:46)
[2024-01-30 11:55] LABS: Influenza A by NAA Not Detected (NotDetected); Influenza B by NAA Not Detected (NotDetected); SARS-CoV-2 NAA Rapid Test Not Detected (NotDetected)
[2024-01-30 12:31] LABS: ALT (SGPT) 11 U/L (8-55); AST (SGOT) 14 U/L (5-34); Albumin 3.7 g/dL (3.5-5.0); Alkaline Phosphatase 53 U/L (40-110); Anion Gap 18 mmol/L (10-20); BUN (Urea Nitrogen) 11 mg/dL (8.9-20.6); Bilirubin, Total 0.4 mg/dL (0.2-1.2); Calc. Creatinine Clearance 0 mL/min (70-130); Calcium 8.2 mg/dL (7.8-10.44); Carbon Dioxide 17 mmol/L (22-29); Chloride 107 mmol/L (98-107); Estimated GFR 125; Globulin 2.7 g/dL (2.4-3.5); Glucose 151 mg/dL (70-105); Lipase 21 U/L (8-78); Protein, Total 6.4 g/dL (6.0-8.3); Sodium 139 mmol/L (136-145)
[2024-01-30] MEDS ORDERED: Haloperidol Lactate 5 MG/ML VIAL ONE (12:31)
[2024-01-30] MEDS ORDERED: Potassium Chloride 20 MEQ TAB ONE (14:18)
[2024-01-30 14:42] LABS: Lactic Acid 2.2 mmol/L (0.5-2.2)
== END 2024-01-30 16:10 | disposition home or self-care (01) ==
LOC: EDBD → MERGE 10:23 → ERS 10:23
DX: R10.9 Unspecified abdominal pain (principal); R11.10 Vomiting, unspecified; B20 Human immunodeficiency virus [HIV] disease
CPT/HCPCS: 36415; 71275; 74177; 80053; 82805; 83605; 83690; 84484; 85025; 85610; 85730; 87040; 93005; 96365; 96375; 96376; J1630; J2270; J2405; J2543; J3370-JW; J3490; Q9967

== ENCOUNTER 2024-06-21 08:02 | Emergency (ER) | payer OTHER ==
[2024-06-21] MEDS ORDERED: Ketorolac Tromethamine 30 MG (1 mL) VIAL ONE (08:22)
[2024-06-21] MEDS ORDERED: Ondansetron PF 4 MG/2 ML Vial ONE ×2 (08:23→10:32)
[2024-06-21] MEDS ORDERED: Morphine 4 MG/ML VIAL ONE (08:23)
[2024-06-21 08:27] LABS: #Basophils 0.03 10x3/uL (0.0-0.2); %Basophils 0.3 % (0.0-1.0); %Eosinophils 0.4 % (0.0-10.0); %Lymphocytes 33.1 % (21.0-51.0); %Monocytes 13.4 % (0.0-10.0); %Neutrophils 50.9 % (42.0-75.0); Hemoglobin 14.6 g/dL (14.0-18.0); Mean Corpuscular HGB CONC 35.6 g/dL (32.0-36.0); Mean Corpuscular Hemoglobin 32.3 pg (27.0-31.0); Mean Corpuscular Volume 90.7 fL (78.0-98.0); Mean Platelet Volume 9.1 fL (7.4-10.4); Platelet Count 347 10x3/uL (130-400); RBC Distribution Width 13.5 % (11.5-14.5); Red Blood Cell (RBC) Count 4.52 mill/uL (4.70-6.10)
[2024-06-21 08:46] LABS: ALT (SGPT) 25 U/L (8-55); AST (SGOT) 23 U/L (5-34); Albumin 3.3 g/dL (3.5-5.0); Alkaline Phosphatase 66 U/L (40-110); Anion Gap 17 mmol/L (10-20); BUN (Urea Nitrogen) 9 mg/dL (8.9-20.6); Bilirubin, Total 0.5 mg/dL (0.2-1.2); Calc. Creatinine Clearance 0 mL/min (70-130); Calcium 9.4 mg/dL (7.8-10.44); Carbon Dioxide 18 mmol/L (22-29); Chloride 108 mmol/L (98-107); Estimated GFR 121; Globulin 3.2 g/dL (2.4-3.5); Glucose 112 mg/dL (70-105); Potassium 3.7 mmol/L (3.5-5.1); Protein, Total 6.5 g/dL (6.0-8.3); Sodium 139 mmol/L (136-145)
[2024-06-21] MEDS ORDERED: cefTRIAXone (ROCEPHIN) 500 MG VIAL ONE (10:32)
[2024-06-21] MEDS ORDERED: Lidocaine 1% MPF 2 ML VIAL ONE (10:32)
[2024-06-21 10:33] LABS: Bacteria/HPF None Seen HPF (None Seen); Bilirubin Negative (Negative); Blood, Urine Negative (Negative); CAUTI Indications for Culture Dysuria,urgency,freq; Clarity Clear (Clear); Glucose, Urine (Dipstick) Normal (Negative); Ketone, Urine Negative (Negative); Leukocyte Negative Leu/uL (Negative); Nitrite Negative (Negative); Protein, Urine (Dipstick) Negative (Neg-Trace); RBC/HPF 0-3 HPF (0-3); Specific Gravity, Urine 1.006 (1.002-1.036); Squamous Epithelial 0-3 HPF (0-3); Urobilinogen Normal mg/dL (Less than 2); WBC/HPF 0-3 HPF (0-3)
[2024-06-21 10:34] LABS: Urine Culture Reflex No No
== END 2024-06-21 10:44 | disposition home or self-care (01) ==
LOC: ERS 08:02
DX: N45.3 Epididymo-orchitis (principal); B20 Human immunodeficiency virus [HIV] disease
CPT/HCPCS: 76870; 80053; 81001; 85025; 87086; 93976; J0696; J1885; J2272; J2405